=== PATIENT | female | born 1935 | race Caucasian/White ===

== ENCOUNTER 2016-09-18 06:51 | Day surgery (SDC) | payer OTHER ==
[~2016-09-18] VITALS: Ht 162.6 cm; Wt 70.3 kg
[~2016-09-18 06:51] MED LIST: ADULT LOW DOSE81 MG PO; ADVAIR 250-501 EACH INH; ALBUTEROL2.5 MG/31 INH; AMLODIPINE BESYL5 MG PO; ASPIRIN81 M2; BENADRYL25 MG PO; CALCIUM 600 +1 EA11 PO; CARDURA1 MG PO; CLARITIN10 MG PO; COUMADIN 1MG TAB1 M1 PO; COUMADIN 2.5MG2.5 M1 PO; COUMADIN 5 MG TA5 M1 PO; COZAAR 50 MG TA50 M1 PO; COZAAR 50 MG TA50 M2 PO; DIPHENHYDRAMINE25 M1 PO; DOXAZOSIN MESYLA1 MG PO; ELEMENTAL CALC600 MG; FISH OIL 1,001000 M2 PO; KLOR-CON SPRIN10 MEQ PO; LASIX 20 MG TAB20 MG PO; LEVAQUIN 500 M500 M2 PO; LEVAQUIN 750 M750 MG PO; LEVOTHYROXINE0.05 MG PO; MUCINEX TA600 MG/TA2 PO; OMEPRAZOLE 20 M20 M1 PO; OS-CAL 500+D C1 EACH; PAXIL10 MG; PERFOROMIS20 MCG/2 M; PERFOROMIS20 MCG/2 M INH; PRAVACHOL 20 MG20 M1 PO; PREDNISONE 10 M10 M1; PREDNISONE 20 M20 MG PO; PROAIR HFA8.5 GM INH; PROZAC 20 MG20 MG PO; PULMICORT0.5 MG/22 INH; RESTASIS1 EACH OPHTHALMIC; TRAZODONE HCL50 MG PO; VESICARE 5 MG TA5 MG PO; VITAMIN D1000 UNI1 PO; XARELTO20 MG PO
[2016-09-18 10:48] VITALS: BP 164/69
[2016-09-18 11:19] LABS: CALCIUM 9.1 mg/dL (8.5-10.1); CREATININE 1.3 mg/dL (0.6-1.0); POTASSIUM 3.6 mmol/L (3.5-5.1)
[2016-09-18 11:21] LABS: INR 1.1; PROTIME 11.4 Seconds (9.3-11.4)
== END 2016-09-18 15:00 | disposition home or self-care (01) ==
LOC: OR → TBA 06:51 → OR 06:51
PROVIDERS: Ophthalmology
DX: H02.005 Unspecified entropion of left lower eyelid (principal); H02.002 Unspecified entropion of right lower eyelid
CPT/HCPCS: 50010; 50101; 50386; 50398; 51636; 56527; 56531; 62110; 62850; 70005

== ENCOUNTER 2017-04-06 05:22 | Day surgery (SDC) | payer OTHER ==
[~2017-04-06] VITALS: Ht 160 cm; Wt 61.2 kg
--- NOTE | ~2017-04-06 | P ---
[facility] [place] [address] PROCEDURE REPORT Name: BAL MEDINA Room #: DEP [facility].#: [id number] Admission: 04/06/17 Attend Phys: Cristhian Plasencia MD Discharge: 04/06/17 Date of : 33 Report #: [id number] THIS REPORT FOR: //name// CC: Brayan Plasencia PREOPERATIVE DIAGNOSIS: Bilateral upper lid ptosis with superior visual field defects both eyes. POSTOPERATIVE DIAGNOSIS: Bilateral upper lid ptosis with superior visual field defects both eyes. OPERATION PERFORMED: Bilateral upper lid functional ptosis repair. 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 ANESTHESIA: Local with IV sedation. COMPLICATIONS: None. INDICATIONS FOR PROCEDURE: This patient has bilateral upper lid ptosis with superior visual field loss both eyes. Visual field testing demonstrates dense superior visual defects. Retesting with the upper lid elevated shows an improvement in visual field loss of over 30% and in excess of 12 degrees. The current procedure is being undertaken in order to improve the patient's visual function. Informed consent was obtained to include but not limited to the risk of loss of vision, bleeding, infection, scarring, failure to improve the problem and need for further surgery, such as adjustment of lid height. DESCRIPTION OF PROCEDURE: The patient was taken to the operating room, where 2% Xylocaine with epinephrine mixed with equal parts of 0.75% Marcaine with Wydase was administered transcutaneously to each upper lid. The patient was then prepped and draped in the usual sterile fashion. An upper lid crease incision was then made bilaterally and the dissection was carried down until the orbital septum was identified. The orbital septum was then cleared and the preaponeurotic fat identified. The levator aponeurosis was then disinserted from the anterior surface of the tarsal plate and dissected free in the avascular Wing's muscle plane. The aponeurosis was then advanced and reattached to the anterior surface of the tarsal plate with interrupted mattress 6-0 Novafil sutures on each side, adjusting for height and contour. The redundant aponeurosis was then amputated. The incision was then closed with multiple interrupted 6-0 chromic sutures that were used to recreate an upper lid [address] [address] PROCEDURE REPORT Name: BAL MEDINA Room #: DEP [facility].#: [id number] Admission: 04/06/17 Attend Phys: Cristhian Plasencia MD Discharge: 04/06/17 Date of : 33 Report #: [id number] crease. The skin was closed with a running 6-0 plain gut suture. The wound was then cleaned and dressed with ophthalmic antibiotic ointment followed by a Telfa pad. The patient was transported to the recovery area, having tolerated the procedure well with no anesthesia or operative complications being noted. <ELECTRONICALLY SIGNED> By: Cristhian Plasencia MD 04/13/17 [id number] MD timothy Do
[~2017-04-06 05:22] MED LIST changes: +BACTRIM DS TAB1 EACH PO; +CALCIUM 600+D1 EACH PO; +HYDROCODONE-AP1 EAC6 PO; +JANUVIA100 MG PO; +KLOR-CON 1010 MEQ PO; -LEVOTHYROXINE0.05 MG PO; -MUCINEX TA600 MG/TA2 PO; +MUCINEX600 MG PO; +OXYBUTYNIN 5 MG5 M2 PO; +PRAVACHOL20 MG PO; +PREDNISONE 10 M10 M1 PO; +SYNTHROID50 MCG PO; +ZPAK PO
[2017-04-06 11:52] LABS: CALCIUM 8.8 mg/dL (8.5-10.1); POTASSIUM 4.1 mmol/L (3.5-5.1)
[2017-04-06 11:58] LABS: ALBUMIN 3.5 g/dL (3.4-5.0); TOTAL BILIRUBIN 0.4 mg/dL (<0.1-1.0); TOTAL PROTEIN 6.2 g/dL (6.4-8.2)
[2017-04-06 12:30] VITALS: BP 118/50
[2017-08-04] MEDS ORDERED: MUCINEX1200 MG PO (21:53)
[2017-08-04] MEDS ORDERED: CARDURA4 MG PO (21:54)
[2017-08-04] MEDS ORDERED: PERFOROMIS20 MCG/2 M INH (21:57)
[2017-08-04] MEDS ORDERED: PERCOCET 5-3251 EACH PO (22:15)
[2017-10-02] MEDS ORDERED: FISH OIL 1,001000 M2 PO (23:09)
[2017-10-02] MEDS ORDERED: MUCINEX1200 MG PO (23:11)
== END 2017-04-06 14:48 | disposition home or self-care (01) ==
LOC: OR 05:22 → TBA 05:23 → OR 10:52
PROVIDERS: Ophthalmology
DX: H02.403 Unspecified ptosis of bilateral eyelids (principal); H53.462 Homonymous bilateral field defects, left side; H53.461 Homonymous bilateral field defects, right side; I11.0 Hypertensive heart disease with heart failure; I50.9 Heart failure, unspecified; E11.9 Type 2 diabetes mellitus without complications; E78.5 Hyperlipidemia, unspecified; K21.9 Gastro-esophageal reflux disease without esophagitis; J43.9 Emphysema, unspecified; Z86.73 Personal history of transient ischemic attack (TIA), and cerebral infarction without residual deficits; Z87.891 Personal history of nicotine dependence; Z85.828 Personal history of other malignant neoplasm of skin; Z98.41 Cataract extraction status, right eye; Z98.42 Cataract extraction status, left eye; Z96.1 Presence of intraocular lens; Z98.890 Other specified postprocedural states; Z88.0 Allergy status to penicillin; Z79.899 Other long term (current) drug therapy
CPT/HCPCS: 50010; 50101; 50386; 50398; 51636; 56528; 56531; 62110; 62850; 70005